=== PATIENT | female | born 1995 | race Caucasian/White ===

== ENCOUNTER 2021-09-12 17:55 | Inpatient (IN) ==
[2021-09-12] MEDS ORDERED: OXYTOCIN/LR 20 UNIT/1,000 ML BAG IV ONE (18:33)
[2021-09-12] MEDS ORDERED: ONDANSETRON 4 MG/2 ML VIAL IV PRN (18:33)
[2021-09-12] MEDS ORDERED: CARBOPROST TROMETHAMINE 250 MCG/ML AMP IM PRN (18:33)
[2021-09-12] MEDS ORDERED: METHYLERGONOVINE 0.2 MG/1 ML AMP IM PRN (18:33)
[2021-09-12] MEDS ORDERED: TRANEXAMIC ACID 1,000 MG in SODIUM CHLORIDE 0.9% 100 ML IV PRN (18:33)
[2021-09-12] MEDS ORDERED: miSOPROStoL 200 MCG TABLET RECTAL PRN (18:33)
[2021-09-12] MEDS: LACTATED RINGERS 1,000 ML IV SCH ×2 (18:42→21:11)
[2021-09-12 18:59] LABS: Basophils % 0.2 % (0.0-0.8); Eosinophils % 0.3 % (0.00-10.9); Hematocrit 33.3 VOL% (35.7-47.0); Immature Granulocytes % 0.6 %; Immature Granulocytes Absolute 0.05 #; Lymphocytes % 22.6 % (21.3-54.2); Mean Corpuscular Volume 90.2 FL (87-102); Mean Platelet Volume 11.9 FL (9.6-12.0); Monocytes # 0.5 10*3/uL (0.11-0.8); Monocytes % 6.1 % (1.7-12.7); Neutrophils % 70.2 % (38.7-73.9); Platelet Count 168 T/CUMM (130-400); Red Blood Count 3.69 MC/CUMM (3.8-5.5); Red Cell Distribution Width 13.1 % (9.3-17.3); White Blood Count 8.6 T/CUMM (4-12)
[2021-09-12] MEDS ORDERED: OXYTOCIN/LR 20 UNIT/1,000 ML BAG IV SCH (19:00)
[2021-09-12 19:09] LABS: INR 0.9; PT Patient Result 9.9 SECS (10.5-12.0); Partial Thromboplastin Time 27.4 SECS (23.8-32.1)
[2021-09-12 19:24] LABS: Alanine Aminotransferase 16 U/L (13-56); Albumin 2.9 G/DL (3.4-5.0); Alkaline Phosphatase 224 U/L (45-117); Aspartate Amino Transferase 20 U/L (0-37); Bilirubin,Direct < 0.100 MG/DL (0.0-0.20); Bilirubin,Total < 0.39 MG/DL (0.20-1.00); Blood Urea Nitrogen 9 MG/DL (7-18); Calcium 9.9 MG/DL (8.5-10.1); Carbon Dioxide 22 MMOL/L (21-32); Chloride 106 MMOL/L (98-107); Estimated Glom Filtration Rate 117 ML/MIN; Glucose 86 MG/DL (74-106); Osmolality,Calculated 267.1 MOS/KG (273-304); Potassium 4.1 MMOL/L (3.5-5.1); Sodium 135 MMOL/L (136-145); Total Protein 6.9 G/DL (6.4-8.2); Uric Acid 5.6 MG/DL (2.6-6.0)
[2021-09-12] MEDS ORDERED: ACETAMINOPHEN 500 MG TABLET PO PRN (22:53)
[2021-09-12] MEDS ORDERED: BUTORPHANOL 2 MG/ML VIAL IV PRN (22:54)
[2021-09-12] MEDS ORDERED: MEPERIDINE 25 MG/1 ML VIAL IV PRN (22:54)
[2021-09-12] MEDS ORDERED: diphenhydrAMINE CAP 25 MG CAPSULE PO PRN (22:54)
[2021-09-12] MEDS ORDERED: MEPERIDINE 50 MG/1 ML VIAL IV PRN ×2 (22:54→23:30)
[2021-09-12] MEDS ORDERED: BUTORPHANOL 1 MG/ML VIAL IV PRN (22:54)
[2021-09-13] MEDS ORDERED: ePHEDrine 50 MG/ML VIAL ONE (00:54)
[2021-09-13] MEDS ORDERED: fentaNYL 2 MCG/ROPIV 0.2% EPID 100 ML EPIDURAL ONE (00:54)
[2021-09-13] MEDS ORDERED: CITRIC ACID/SODIUM CITRATE 30 ML UDCUP ONE (00:54)
[2021-09-13] MEDS ORDERED: FAMOTIDINE 20 MG/2 ML VIAL IV ONE ×2 (00:55)
[2021-09-13] MEDS ORDERED: fentaNYL 2 MCG/ROPIV 0.2% EPID 100 ML EPIDURAL SCH (00:55)
[2021-09-13] MEDS ORDERED: CITRIC ACID/SODIUM CITRATE 30 ML UDCUP PO ONE (00:55)
[2021-09-13] MEDS: LACTATED RINGERS 1,000 ML IV SCH (01:45)
[2021-09-13] MEDS ORDERED: ePHEDrine 50 MG/ML VIAL IV PRN (03:10)
[2021-09-13] MEDS ORDERED: hydrOXYzine HCL 25 MG/1 ML VIAL IM PRN (03:10)
[2021-09-13] MEDS ORDERED: diphenhydrAMINE 50 MG/1 ML VIAL IV PRN ×2 (03:10)
[2021-09-13] MEDS ORDERED: ONDANSETRON 4 MG/2 ML VIAL IV ONE (03:10)
[2021-09-13] MEDS ORDERED: NALOXONE 0.4 MG/ML VIAL IV PRN (03:10)
[2021-09-13] MEDS ORDERED: PROMETHAZINE 25 MG/1 ML VIAL IM ONE (03:10)
[2021-09-13 04:33] LABS: Bilirubin,Urine Negative (Negative); Blood, Urine Small mg/dL (Negative); Glucose,Urine (UA) Negative (Negative); Ketones,Urine 15 mg/dL (Negative); Mucus,Urine Occasional /LPF (Occasional); Nitrite,Urine Negative (Negative); Protein,Urine Negative (Negative); RBC,Urine <1 /HPF (0-4); Squamous Epithelial Cell,Urine Occasional /HPF (0-10); Urine Appearance Clear (Clear); Urine Color Yellow (Yellow); Urine Specific Gravity 1.015 (1.001-1.035); Urine Urobilinogen 0.2 eU/dL (<2.0)
[2021-09-13] MEDS ORDERED: ACETAMINOPHEN 325 MG TABLET PO PRN (06:34)
[2021-09-13] MEDS ORDERED: OXYTOCIN/LR 20 UNIT/1,000 ML BAG IV ONE (06:34)
[2021-09-13] MEDS ORDERED: MEASLES/MUMPS/RUBELLA VACCINE 0.5 ML VIAL SUBCUT ONE (06:34)
[2021-09-13] MEDS ORDERED: ONDANSETRON 4 MG/2 ML VIAL IV PRN (06:34)
[2021-09-13] MEDS ORDERED: HYDROCORTISONE 2.5% RECTAL CREAM 30 GM TUBE TOP PRN (06:34)
[2021-09-13] MEDS ORDERED: LANOLIN 50% CREAM 0.3 OZ TUBE TOP PRN (06:34)
[2021-09-13] MEDS ORDERED: RHO(D) IMMUNE GLOBULIN 300 MCG SYRINGE IM ONE (06:34)
[2021-09-13] MEDS ORDERED: BENZOCAINE 20%/MENTHOL 0.5% SPRAY 56 GM CAN TOP PRN (06:34)
[2021-09-13] MEDS ORDERED: BISACODYL 10 MG SUPP RECTAL PRN (06:34)
[2021-09-13] MEDS ORDERED: DIPH/TET/ACEL PERT BOOSTER VACCINE 0.5 ML VIAL IM ONE (06:34)
[2021-09-13] MEDS ORDERED: WITCH HAZEL PADS 100/JAR TOP PRN (06:34)
[2021-09-13] MEDS ORDERED: oxyCODONE/ACETAMINOPHEN 5-325 MG TABLET PO PRN (06:34)
[2021-09-13 06:36] LABS: Cord Venous Blood HCO3 22.2 MMOL/L; Cord Venous Blood PO2 28.8 MMHG
[2021-09-13] MEDS: IBUPROFEN 800 MG TABLET PO PRN ×2 (10:37→18:56)
[2021-09-13] MEDS: oxyCODONE/ACETAMINOPHEN 5-325 MG TABLET PO PRN (10:38)
[2021-09-13] MEDS: DOCUSATE SODIUM 100 MG CAPSULE PO SCH (21:29)
[2021-09-14 05:50] LABS: Basophils % 0.2 % (0.0-0.8); Eosinophils # 0.1 10*3/uL (0.0-0.87); Eosinophils % 0.6 % (0.00-10.9); Hematocrit 27.7 VOL% (35.7-47.0); Hemoglobin 9.1 GM/DL (12.0-16.0); Immature Granulocytes % 0.5 %; Immature Granulocytes Absolute 0.04 #; Lymphocytes # 1.8 10*3/uL (1.4-4.0); Lymphocytes % 21.4 % (21.3-54.2); Mean Corpuscular HGB Conc 32.9 GM/DL (32-36); Mean Corpuscular Volume 90.2 FL (87-102); Monocytes # 0.5 10*3/uL (0.11-0.8); Neutrophils % 71.3 % (38.7-73.9); Platelet Count 141 T/CUMM (130-400); Red Blood Count 3.07 MC/CUMM (3.8-5.5); Red Cell Distribution Width 13.5 % (9.3-17.3); White Blood Count 8.4 T/CUMM (4-12)
[2021-09-14] MEDS: oxyCODONE/ACETAMINOPHEN 5-325 MG TABLET PO PRN ×2 (06:49→15:14)
[2021-09-14] MEDS: DOCUSATE SODIUM 100 MG CAPSULE PO SCH ×2 (11:08→20:50)
[2021-09-14] MEDS: IBUPROFEN 800 MG TABLET PO PRN (14:39)
[2021-09-15] MEDS: DOCUSATE SODIUM 100 MG CAPSULE PO SCH (08:12)
[2021-09-15 12:45] VITALS: BP 129/78
== END 2021-09-15 11:40 | disposition home or self-care (01) | DRG 807 ==
LOC: N.LD 17:55 → N.OB 09-13 09:29
PROVIDERS: ADMIT Obstetrics & Gynecology; ATTEND Obstetrics & Gynecology